=== PATIENT | female | born 1980 | race American Indian/Alaskan Native ===

== ENCOUNTER 2019-04-18 09:39 | Emergency (ER) | payer MEDICARE ==
[2019-04-18 09:45] VITALS: BP 134/85
[2019-04-18] MEDS ORDERED: ONDANSETRON 4 MG ODT TAB PO ONE (10:50)
--- NOTE | 2019-04-18 10:52 | Emergency Department Report ---
HPI - General Chief Complaint: Abdominal Pain Time Seen by Provider: 04/18/19 10:34 - HPI HPI: 39-year-old Aliya female presents to the emergency department with complaint of a 2 day history of some upper abdominal pain. She says it feels like "something is squeezing my intestines." She has a history of IBS and wonders if she could be having a flareup. She says that she has been having some burping, passing gas, but still feels like she has been constipated. She took some Dulcolax with 1 bowel movement. She denies any fever, dysuria, vaginal bleeding or discharge, vomiting, but does have some nausea. Her primary care physician is Dr. Rick. She also try to follow up with her nuclear spectroscopist, Dr. Cardenas, but was unable to get into be seen. She has started taking some Bentyl for her symptoms without any relief. ED Past Medical Hx - Past Medical History Additional medical history: Osteoarthritis, IBS, GERD - Surgical History Hx Cholecystectomy: Yes (2012) Additional Surgical History: Endometriosis Laproscopy, tubal 2018 - Social History Smoking Status: Never Smoker Substance Use Type: None - Medications Home Medications: Home Medications Medication Instructions Recorded Confirmed Last Taken Type Ciprofloxacin HCl [Cipro] 500 mg PO BID #14 tablet 04/27/18 Unknown Rx Dicyclomine [Bentyl] 10 mg PO QID #15 capsule 04/27/18 Unknown Rx Diphenoxylate/Atropine [Lomotil] 1 tab PO Q4H PRN #10 tablet 04/27/18 Unknown Rx metroNIDAZOLE [Flagyl] 500 mg PO Q12HR #14 tab 04/27/18 Unknown Rx Docusate Sodium [Colace] 100 mg PO BID PRN #20 capsule 04/18/19 Unknown Rx Ondansetron [Zofran ODT TAB] 4 mg PO Q8HR PRN #12 tab.rapdis 04/18/19 Unknown Rx ED Review of Systems ROS: Stated complaint: IBS FLARE UP Other details as noted in HPI Comment: All other systems reviewed and negative Constitutional: denies: chills, fever Respiratory: denies: shortness of breath Cardiovascular: denies: chest pain Gastrointestinal: abdominal pain, nausea, constipation. denies: vomiting Genitourinary: denies: dysuria, discharge Musculoskeletal: denies: joint swelling, arthralgia Neurological: denies: headache, weakness Physical Exam - Physical Exam Vital Signs: Vital Signs 04/18/19 09:42 Temperature 98.1 F Pulse Rate 67 Respiratory 18 Rate Blood Pressure 134/85 O2 Sat by Pulse 100 Oximetry Physical Exam: GENERAL: The patient is well-developed well-nourished. HENT: Normocephalic. Atraumatic. Patient has moist mucous membranes. EYES: Extraocular motions are intact. NECK: Supple. Trachea is midline. CHEST/LUNGS: Clear to auscultation. There is no respiratory distress noted. HEART/CARDIOVASCULAR: Regular. There is no tachycardia. There is no murmur. ABDOMEN: Abdomen is soft. There is some upper abdominal tenderness to palpation. No guarding. Patient has normal bowel sounds. There is no abdominal distention. SKIN: Skin is warm and dry. NEURO: The patient is awake, alert, and oriented. The patient is cooperative. The patient has normal speech. MUSCULOSKELETAL: There is no tenderness or deformity. There is no evidence of acute injury. ED Course Vital Signs 04/18/19 09:42 Temperature 98.1 F Pulse Rate 67 Respiratory 18 Rate Blood Pressure 134/85 O2 Sat by Pulse 100 Oximetry ED Medical Decision Making - Lab Data Result diagrams: 04/18/19 11:14 04/18/19 11:14 - Radiology Data Radiology results: image reviewed interpreted by me: Abdominal x-ray shows nonspecific nonobstructive bowel gas. There is increased stool volume. - Medical Decision Making This patient, with history of IBS, presents to the emergency department with s ome upper abdominal pain, nausea and what appears to be some constipation. Her labs are unremarkable. CBC, metabolic panel and lipase. Abdominal x-ray shows nonspecific nonobstructive bowel gas and an increased stool volume. Vital signs stable throughout course including being afebrile. The abdomen is soft, nondistended and nontoxic in appearance. The patient has an appointment in the morning with a nuclear spectroscopist and also has good follow-up with primary care. She was given some Zofran and there has been no vomiting while in the emergency department. The patient has been given some Colace for her constipation. She has magnesium citrate and Bentyl home to take as well. She will return to the ER if any worsening of her symptoms or any acute distress. - Differential Diagnosis pancreatitis, gastritis, colitis, food poisoning Critical Care Time: No Critical care attestation.: If time is entered above; I have spent that time in minutes in the direct care of this critically ill patient, excluding procedure time. ED Disposition Clinical Impression: Hx of irritable bowel syndrome, Increased stool volume Abdominal pain Qualifiers: Abdominal location: upper abdomen, unspecified Qualified Code(s): R10.10 - Upper abdominal pain, unspecified Disposition: TO HOME OR SELFCARE Is pt being admited?: No Condition: Stable Instructions: Constipation (ED), High Fiber Diet (ED), Abdominal Pain (ED) Additional Instructions: Please follow-up with your nuclear spectroscopist tomorrow as previously planned/scheduled. Return to the emergency Department with any worsening of your symptoms or any acute distress. Prescriptions: Docusate Sodium [Colace] 100 mg PO BID PRN #20 capsule PRN Reason: Constipation Ondansetron [Zofran ODT TAB] 4 mg PO Q8HR PRN #12 tab.rapdis PRN Reason: Nausea Referrals: CHAO RICK MD [Primary Care Provider] - 2-3 Days ROSAURA CARDENAS MD [Staff Physician] - 2-3 Days Time of Disposition: 12:20
[2019-04-18 11:38] LABS: Basophils % (Auto) 0.6 % (0.0-1.8); Eosinophils # (Auto) 0.1 K/mm3 (0.0-0.4); Eosinophils % (Auto) 1.7 % (0.0-4.3); Hematocrit 38.6 % (30.3-42.9); Hemoglobin 12.7 gm/dl (10.1-14.3); Lymphocytes # (Auto) 1.3 K/mm3 (1.2-5.4); Lymphocytes % (Auto) 21.4 % (13.4-35.0); Mean Corpuscular HGB Conc 33 % (30-34); Mean Corpuscular Volume 88 fl (79-97); Monocytes # (Auto) 0.5 K/mm3 (0.0-0.8); Monocytes % (Auto) 8.4 % (0.0-7.3); Platelet Count 314 K/mm3 (140-440); Red Blood Count 4.41 M/mm3 (3.65-5.03); Red Cell Distribution Width 13.6 % (13.2-15.2)
--- NOTE | 2019-04-18 11:40 | XRay Report ---
ABDOMEN SUPINE AND UPRIGHT VIEWS HISTORY: Abd pain COMPARISON: None. FINDINGS Bowel: Nonobstructive bowel pattern. A large volume of stool throughout the colon and gas and stool i n the rectum. Minimal distended small bowel. No air-fluid levels. Calcifications: No significant abnormal calcifications. Osseous Structures: No significant osseous abnormality. Additional findings: No free air. IMPRESSION: 1. Negative abdomen with abundant stool. Signer Name: Naren Rich MD Signed: 04/18/2019 11:36 AM Workstation Name: [id number]
[2019-04-18 12:02] LABS: Alanine Aminotransferase 13 units/L (7-56); Albumin 3.9 g/dL (3.9-5); BUN/Creatinine Ratio 15; Blood Urea Nitrogen 9 mg/dL (7-17); Calcium 9.4 mg/dL (8.4-10.2); Hemolysis Index 49
== END 2019-04-18 12:29 | disposition home or self-care (01) ==
LOC: ED 09:39
DX: R19.5 Other fecal abnormalities (principal); R10.10 Upper abdominal pain, unspecified; M19.90 Unspecified osteoarthritis, unspecified site; Z87.19 Personal history of other diseases of the digestive system; Z90.49 Acquired absence of other specified parts of digestive tract; Z79.899 Other long term (current) drug therapy; Z88.1 Allergy status to other antibiotic agents; Z88.5 Allergy status to narcotic agent
CPT/HCPCS: 36415; 74019; 80053; 83690; 84703; 85025; Q0162